=== PATIENT | female | born 1975 | race Caucasian/White ===

== ENCOUNTER 2016-05-29 10:34 | Emergency (ER) | payer MEDICAID ==
[~2016-05-29] VITALS: Ht 175.3 cm; Wt 63.5 kg
[2016-05-29 10:52] VITALS: BP 134/101
[2016-05-29] MEDS ORDERED: KETOROLAC TROMETH 60MG/2ML VIAL IM ONE (11:45)
== END 2016-05-29 12:35 | disposition home or self-care (01) ==
LOC: ER 10:39
DX: S29.012A Strain of muscle and tendon of back wall of thorax, initial encounter (principal); F17.210 Nicotine dependence, cigarettes, uncomplicated; X50.9XXA Other and unspecified overexertion or strenuous movements or postures, initial encounter; Y93.89 Activity, other specified; Y99.8 Other external cause status; Y92.89 Other specified places as the place of occurrence of the external cause
CPT/HCPCS: 96372; 99283; J1885